=== PATIENT | male | born 1940 | race Caucasian/White ===

== ENCOUNTER 2021-01-03 11:16 | Emergency (ER) | payer OTHER ==
[2021-01-03 11:22] VITALS: BP 193/94; PULSE 84; TEMP 98.4; BMI 25.0
[2021-01-03] MEDS ORDERED: LIDOCAINE 5% TOPICAL PATCH TP ONE (12:13)
[2021-01-03] MEDS ORDERED: LIDOCAINE 5% TOPICAL PATCH ONE (12:36)
== END 2021-01-03 12:57 | disposition home or self-care (01) ==
LOC: FER 11:16
DX: S46.912A Strain of unspecified muscle, fascia and tendon at shoulder and upper arm level, left arm, initial encounter (principal); S83.92XA Sprain of unspecified site of left knee, initial encounter
CPT/HCPCS: 73030-TC-LT-FY; 73564-TC-LT-FY; 99284-25